=== PATIENT | female | born 1950 | race Caucasian/White ===

== ENCOUNTER 2018-04-13 20:51 | Emergency (ER) | payer MEDICAID, OTHER ==
[~2018-04-13] VITALS: Ht 157.5 cm; Wt 57.6 kg
[2018-04-13] MEDS ORDERED: ESTR4INS VG (21:12)
[2018-04-13] MEDS ORDERED: CHOL100043 PO (21:12)
[2018-04-13] MEDS ORDERED: SERTRALINE HCL 50 MG TABLET (21:12)
[2018-04-13] MEDS ORDERED: BALSALAZIDE DISODIUM 750 MG (21:12)
[2018-04-13] MEDS ORDERED: BIOT1CAP3 PO (21:12)
[2018-04-13] MEDS ORDERED: CETI10CA PO (21:12)
[2018-04-13] MEDS ORDERED: OSELTAMIVIR (21:12)
[2018-04-13] MEDS ORDERED: TURM1POW PO (21:12)
[2018-04-13] MEDS ORDERED: EVE1000C3 PO (21:12)
--- NOTE | 2018-04-13 21:45 | NUR ---
Dr. Sullivan at bedside for MSE.
--- NOTE | 2018-04-13 22:02 | NUR ---
Patient discharged to home in stable conditon. Written and verbal after care instructions given. Patient verbalizes understanding of instructions. Patient ambulated out of ER with steady gait, no acute signs of distress, VSS, all belongings taken.
[2018-04-13 22:03] VITALS: BP 113/65
== END 2018-04-13 22:03 | disposition home or self-care (01) ==
LOC: ER 20:51
DX: B34.9 Viral infection, unspecified (principal); Z88.0 Allergy status to penicillin; Z88.2 Allergy status to sulfonamides; Z88.1 Allergy status to other antibiotic agents; Z88.7 Allergy status to serum and vaccine; Z91.048 Other nonmedicinal substance allergy status; Z79.899 Other long term (current) drug therapy
CPT/HCPCS: A4663